=== PATIENT | male | born 1990 | race American Indian/Alaskan Native ===

== ENCOUNTER 2018-01-03 22:21 | Emergency (ER) | payer SELFPAY | END 2018-01-03 22:30 | disposition left against medical advice (07) | LOC: ED 22:21 | DX: R21 Rash and other nonspecific skin eruption (principal); Z53.21 Procedure and treatment not carried out due to patient leaving prior to being seen by health care provider ==

== ENCOUNTER 2018-01-04 06:56 | Emergency (ER) | payer MEDICAID ==
[2018-01-04 07:18] VITALS: BP 103/49
[2018-01-04] MEDS ORDERED: XYLOCAINE 2% INFILTRATI ONE (09:34)
--- NOTE | 2018-01-04 09:35 | Emergency Department Report ---
Abscess Boil HPI - HPI Chief Complaint: Skin/Abscess/Foreign Body Stated Complaint: RASH UNDER ARM Time Seen by Provider: 01/04/18 09:25 Duration: 3 Days Location: Upper Extremity (right axilla) Severity: Moderate History: Yes Pain, Yes Purulent Drainage, No Fever, No Numbness, No Foreign Body , No Previous History, No Insect Bite HPI: This is a 27-year-old -[place] male who presents with abscess to right axilla for 3 days. Patient has a history of abscess in the same location 1 month ago. She went to repeat biopsy and a trained abscess and started on antibiotic for one week. Patient reports complete antibiotic as prescribed but abscess returned a couple weeks later. He did switch soaps and deodorants with out frequently and has not seen a difference in symptoms. Patient reports pain is worse with arm down and with movement. Pain is 10 out of 10 on pain scale and constant. He is currently taking intensity us for pain with no improvement of symptoms. He did notice purulent drainage this morning. Denies fever, chest pain, shortness of breath, and numbness or tingling. Home Medications: Previous Rx's Medication Instructions Recorded Last Taken Type Ibuprofen [Motrin 800 MG tab] 800 mg PO Q8HR PRN #15 tablet 01/04/18 Unknown Rx Sulfamethoxazole/Trimethoprim 1 each PO BID #20 tablet 01/04/18 Unknown Rx [Bactrim DS TAB] traMADol [Ultram 50 MG tab] 50 mg PO Q6HR PRN #15 tablet 01/04/18 Unknown Rx Allergies/Adverse Reactions: Allergies Allergy/AdvReac Type Severity Reaction Status Date / Time No Known Allergies Allergy Unverified 01/04/18 07:18 ED Review of Systems ROS: Stated complaint: RASH UNDER ARM Other details as noted in HPI Constitutional: denies: chills, fever Respiratory: denies: cough, shortness of breath, wheezing Cardiovascular: denies: chest pain, palpitations Gastrointestinal: denies: abdominal pain, nausea, vomiting, diarrhea Skin: lesions (painful abscess to right axilla). denies: rash Neurological: denies: headache, weakness, numbness, paresthesias Psychiatric: denies: anxiety, depression ED Past Medical Hx - Past Medical History Previous Medical History?: Yes Hx Sickle Cell Disease: Yes - Surgical History Past Surgical History?: Yes Hx Cholecystectomy: Yes - Social History Smoking Status: Never Smoker Substance Use Type: None - Medications Home Medications: Home Medications Medication Instructions Recorded Confirmed Last Taken Type Ibuprofen [Motrin 800 MG tab] 800 mg PO Q8HR PRN #15 tablet 01/04/18 Unknown Rx Sulfamethoxazole/Trimethoprim 1 each PO BID #20 tablet 01/04/18 Unknown Rx [Bactrim DS TAB] traMADol [Ultram 50 MG tab] 50 mg PO Q6HR PRN #15 tablet 01/04/18 Unknown Rx ED Abscess Boil Physical Exam - Exam General: Vital signs noted. No distress. Alert and acting appropriately. Front/Back of Body, Lg (Color): 1 - 2 cm fluctuance nodule to right axilla, erythamatous, tenderness, purulent drainage, surrounding erythema, 1 cm nonfluctuance nodule at 7 o'clock on right axilla, tenderness Size: 2 cm Exam: Yes Tenderness, Yes Fluctuance, Yes Surrounding Cellulites/Erythema, Yes Normal Neurologic Exam, Yes Normal Circulation, No Lymphangitis, No Crepitation , No Heart Murmur I & D Note - I & D Note I & D Note: The area was prepared and draped in the usual, sterile manner. The site was anesthetized with 2% lidocaine without epinephrine. A linear incision along the local skin lines was made and the purulent material expressed. The abcess was explored thoroughly and sequestered pockets were opened. Bleeding was minimal. Packing: idodoform. Followup: The patient tolerated the procedure well without complications. Standard post-procedure care was explained and return precautions are given. ED Course Vital Signs 01/04/18 07:14 Temperature 98.1 F Pulse Rate 58 L Respiratory 16 Rate Blood Pressure 103/49 O2 Sat by Pulse 93 Oximetry Critical care attestation.: If time is entered above; I have spent that time in minutes in the direct care of this critically ill patient, excluding procedure time. ED Medical Decision Making - Medical Decision Making This is a 27 y.o. male that presents with a painful abscess to right axilla for one week. History of abscess on right axilla drained one month ago at [facility]. He switched deodorants and soap. Patient is stable and examined by me. Physical assessment of 2 cm fluctuance nodule to right axilla. No acute signs of distress noted. I&D refer to note. Discussed plan to start bactrim DS, tramadol, and ibuprofen with patient. Educated patient on follow up plan to have packing removed and wound reassessed in 2-3 days. Patient agrees to ED plan of care. Discharged home and follow up with PCP in 2-3 days. ED Disposition Clinical Impression: Abscess of axilla, right, Pain in right axilla Disposition: TO HOME OR SELFCARE Is pt being admited?: No Does the pt Need Aspirin: No Condition: Stable Instructions: Abscess (ED), Abscess Incision and Drainage (ED) Additional Instructions: Keep packing in place for 2-3 days. Return to ER or f/u with PCP to have packing removed and wound reassessed in 2- 3 days. Complete full round of bactrim DS antibiotic as prescribed. Follow up with PCP or ER in 2-3 days. Return to ER if foul smelling discharge, swelling, or severe pain to wound. Prescriptions: Ibuprofen [Motrin 800 MG tab] 800 mg PO Q8HR PRN #15 tablet PRN Reason: Pain Sulfamethoxazole/Trimethoprim [Bactrim DS TAB] 1 each PO BID #20 tablet traMADol [Ultram 50 MG tab] 50 mg PO Q6HR PRN #15 tablet PRN Reason: Pain Referrals: [facility] [Outside] - 3-5 Days [facility] [Outside] - 3-5 Days [facility] [Outside] - 3-5 Days Forms: Work/School Release Form(ED) Time of Disposition: 10:31 Print Language: UKRAINIAN
== END 2018-01-04 10:45 | disposition home or self-care (01) ==
LOC: ED 06:56
DX: L02.411 Cutaneous abscess of right axilla (principal); M79.621 Pain in right upper arm; D57.00 Hb-SS disease with crisis, unspecified; Z90.49 Acquired absence of other specified parts of digestive tract

== ENCOUNTER 2018-01-06 11:02 | Emergency (ER) | payer MEDICAID ==
[2018-01-06 11:46] VITALS: BP 97/54
--- NOTE | 2018-01-06 12:12 | Emergency Department Report ---
ED Recheck HPI - General Chief Complaint: Medical Clearance Stated Complaint: ARMPIT ABSCESS FOLLOW UP Time Seen by Provider: 01/06/18 11:59 Source: patient Mode of arrival: Ambulatory Limitations: No Limitations - History of Present Illness Initial Comments: This is a 27-year-old -Mong[place] male that presents for reassessment of wound and for packing removal. Patient had abscesses drained 2 days ago and returning for packing removal. Denies swelling, odor, numbness or tingling, erythema or surrounding ecchymosis, and symptoms. MD Complaint: wound re-check -: days(s) (2 days ago) Initial Visit For: abscess Returns Today for: wound recheck (packing removal) Symptoms Since Prior Visit: no new symptoms Context: planned re-check Associated Symptoms: none Treatments Prior to Arrival: dressings - Related Data Previous Rx's Medication Instructions Recorded Last Taken Type Ibuprofen [Motrin 800 MG tab] 800 mg PO Q8HR PRN #15 tablet 01/04/18 Unknown Rx Sulfamethoxazole/Trimethoprim 1 each PO BID #20 tablet 01/04/18 Unknown Rx [Bactrim DS TAB] traMADol [Ultram 50 MG tab] 50 mg PO Q6HR PRN #15 tablet 01/04/18 Unknown Rx Allergies Allergy/AdvReac Type Severity Reaction Status Date / Time No Known Allergies Allergy Unverified 01/04/18 07:18 ED Review of Systems ROS: Stated complaint: ARMPIT ABSCESS FOLLOW UP Other details as noted in HPI Constitutional: denies: chills, fever Respiratory: denies: cough, shortness of breath, wheezing Cardiovascular: denies: chest pain, palpitations Gastrointestinal: denies: abdominal pain, nausea, diarrhea Skin: lesions (packing in place to wound right axilla). denies: rash Neurological: denies: headache, weakness, numbness, paresthesias Psychiatric: denies: anxiety, depression ED Past Medical Hx - Past Medical History Hx Sickle Cell Disease: Yes - Surgical History Hx Cholecystectomy: Yes - Social History Smoking Status: Never Smoker - Medications Home Medications: Home Medications Medication Instructions Recorded Confirmed Last Taken Type Ibuprofen [Motrin 800 MG tab] 800 mg PO Q8HR PRN #15 tablet 01/04/18 Unknown Rx Sulfamethoxazole/Trimethoprim 1 each PO BID #20 tablet 01/04/18 Unknown Rx [Bactrim DS TAB] traMADol [Ultram 50 MG tab] 50 mg PO Q6HR PRN #15 tablet 01/04/18 Unknown Rx ED Physical Exam - General Limitations: No Limitations General appearance: alert, in no apparent distress - Respiratory Respiratory exam: Present: normal lung sounds bilaterally. Absent: respiratory distress - Cardiovascular Cardiovascular Exam: Present: regular rate, normal rhythm. Absent: systolic murmur, diastolic murmur, rubs, gallop - GI/Abdominal GI/Abdominal exam: Present: soft, normal bowel sounds - Neurological Exam Neurological exam: Present: alert, oriented X3 - Psychiatric Psychiatric exam: Present: normal affect, normal mood - Skin Skin exam: Present: warm, dry, normal color. Absent: intact (healing 1 cm wound right axilla, packing placed, no active draining), rash ED Course Vital Signs 01/06/18 11:44 Temperature 98.5 F Pulse Rate 59 L Respiratory 16 Rate Blood Pressure 97/54 O2 Sat by Pulse 98 Oximetry ED Recheck MDM - Differential Diagnosis Wound Recheck - Medical Decision Making This is a 27 y.o. male that presents wound reevaluation and packing removed from right axilla. Patient is stable and examined by me. No acute signs of distress noted. Packing removed from right axilla, cleaned with normal saline 3 mL, applied sterile 4 x 4 gauze dressing with surgical tape. Instructed to complete full course of Keflex antibiotic. Follow-up at [facility] in 3-5 days for reevaluation of healing.. Patient agrees to ED plan of care. Discharged home and follow up with PCP in 2-3 days. Critical care attestation.: If time is entered above; I have spent that time in minutes in the direct care of this critically ill patient, excluding procedure time. ED Disposition Clinical Impression: Abscess of axilla, right, Wound check, abscess Disposition: [id number] TO HOME OR SELFCARE Is pt being admited?: No Does the pt Need Aspirin: No Condition: Stable Instructions: Abscess Incision and Drainage (ED), Abscess (ED) Additional Instructions: Complete full round of bactrim DS antibiotic as prescribed. Follow up with primary care provider in 2-3 days. Return to ER if foul smelling discharge, swelling, or severe pain to wound. Referrals: [facility] [Outside] - 3-[address] [facility] [Outside] - 3-5 Days [facility] [Outside] - 3-5 Days Forms: Work/School Release Form(ED) Time of Disposition: 12:17 Print Language: SLOV[place]
== END 2018-01-06 12:20 | disposition home or self-care (01) ==
LOC: ED 11:02
DX: Z48.01 Encounter for change or removal of surgical wound dressing (principal); L02.411 Cutaneous abscess of right axilla; Z90.49 Acquired absence of other specified parts of digestive tract
CPT/HCPCS: 99281